=== PATIENT | male | born 1970 | race African-American/Black ===

== ENCOUNTER 2016-10-15 04:55 | Emergency (ER) | payer MEDICARE, OTHER ==
[~2016-10-15] VITALS: Ht 167.6 cm; Wt 65.8 kg
[2016-10-15] MEDS ORDERED: LORazepam Inj 2mg/ml 1ml IM ONE (05:00)
--- NOTE | 2016-10-15 05:03 | Emergency Room Report ---
History of Present Illness General Chief Complaint: Behavioral Complaint Source: Patient, EMS Present Illness HPI Is a 46-year-old male with a history of methamphetamine abuse. He called 911 because he claimed that he fell anxious. He claimed that somebody spiked is pink. Denies any fever chills denies any nausea vomiting. Nothing made it better nothing made it worse. Suicidal or homicidal. Allergies: Coded Allergies: No Known Allergies (Unverified , 10/15/16) Patient History Past Medical History: see triage record, old chart reviewed Past Surgical History: none Family History: none Social History: tobacco use, drug use Immunizations: other Reviewed Nursing Documentation: PMH: Agreed, PSxH: Agreed Review of Systems ENT: Denies: sore throat Cardiovascular: Denies: chest pain, palpitations Gastrointestinal/Abdominal: Denies: diarrhea, nausea, vomiting Musculoskeletal: Denies: back problems Skin: Denies: rash Neurological: Denies: MONTESINOS, seizures All Other Systems: negative except mentioned in HPI Physical Exam Vital Signs Date Time Temp Pulse Resp B/P Pulse Ox O2 Delivery O2 Flow Rate FiO2 10/15/16 04:56 98.1 133 18 143/105 100 Room Air vitals with tachycardia Sp02 EP Interpretation: reviewed, normal General Appearance: alert/responsive, no apparent distress, non-toxic Head: normocephalic, atraumatic Eyes: PERRL, EOMI ENT: oropharynx normal Neck: supple/symm/no masses Respiratory: effort normal, no rhonchi, no wheezing Cardiovascular: no murmur, gallop, rub Gastrointestinal: non-tender, no mass, non-distended, no rebound/guarding, normal bowel sounds Musculoskeletal: gait & station normal Neurologic: oriented x3, sensory intact, motor strength/tone normal Psychiatric: anxious Suicide Risk Assessment: Suicidal Ideation: No Had intent to initiate attempt: No Pt's plan for suicide attempt: No Has means to complete attempt: No Skin: no rash, normal palpation Medical Decision Making Diagnostic Impression: Primary Impression: Psychosis Qualified Codes: F23 - Brief psychotic disorder Additional Impression: Methamphetamine abuse ER Course Patient presents with psychosis secondary to methamphetamine abuse. No homicidal thought or suicidal thought. Patient is better after Ativan. No criteria for 5150. We'll discharge home. Tachycardia is probably secondary to his agitation from drug abuse. This patient is a chronic risk of self injury due to poor impulse control, limited coping skills, and judgment intermittently impaired by intoxication. I believe that the available clinical evidence to suggest that these characteristics derived primarily from personality disorder and are likely very stable over time. Hospitalization would likely attenuate risk of self-harm only during care home period, without lasting risk reduction. Serious self-harm , while possible, would likely be inadvertent, and because of impulsivity, and foreseeable. For these reasons, I do not believe hospitalization would provide meaningful reduction in risk of self-harm. Last Vital Signs Date Time Temp Pulse Resp B/P Pulse Ox O2 Delivery O2 Flow Rate FiO2 10/15/16 04:56 98.1 133 18 143/105 100 Room Air Status: improved Disposition: HOME, SELF-CARE Condition: Stable Additional Instructions: Abstain from drugs and alcohol. Followup with your Dr. in 7 days. Return if worse. FRANCHESKA GARDNER M.D. Oct 15, 2016 05:03
[2016-10-15 05:10] VITALS: BP 143/95
[2016-10-15] MEDS ORDERED: Haloperidol 5mg/ml Inj IM ONE (05:30)
[2016-10-15 06:13] VITALS: BP 127/88
[2016-10-15 07:03] VITALS: BP 124/85
[2016-10-15 07:04] VITALS: BP 127/88
== END 2016-10-15 07:05 | disposition home or self-care (01) ==
LOC: EDBD 04:55 → EMR 05:30
DX: F29 Unspecified psychosis not due to a substance or known physiological condition (principal); F15.10 Other stimulant abuse, uncomplicated
CPT/HCPCS: 96372; 99283; J1630